=== PATIENT | male | born 1975 | race Caucasian/White ===

== ENCOUNTER 2018-06-13 03:42 | Emergency (ER) | payer MEDICAID ==
[~2018-06-13] VITALS: Ht 175.3 cm; Wt 108.0 kg
[2018-06-13 03:57] VITALS: BP 145/86
== END 2018-06-13 04:11 | disposition left against medical advice (07) ==
LOC: ER 03:43
DX: S01.91XA Laceration without foreign body of unspecified part of head, initial encounter (principal); Z53.21 Procedure and treatment not carried out due to patient leaving prior to being seen by health care provider; W22.8XXA Striking against or struck by other objects, initial encounter; Y93.89 Activity, other specified; Y99.8 Other external cause status; Y92.89 Other specified places as the place of occurrence of the external cause